=== PATIENT | male | born 1985 | race Caucasian/White ===

== ENCOUNTER → 2018-05-25 | Outpatient (CLI) | payer BC ==
[~2018-05-25] MED LIST: LORTAB 5/500 501 TAB PO; NO HOME MEDICATIONS
== END ==
LOC: COL.RAD 07:22
DX: R11.2 Nausea with vomiting, unspecified (principal); R19.00 Intra-abdominal and pelvic swelling, mass and lump, unspecified site; R12 Heartburn

== ENCOUNTER → 2018-06-07 | Outpatient (CLI) | payer BC ==
[~2018-06-07] VITALS: Ht 190.5 cm; Wt 116.4 kg
[2018-06-07] VITALS (15 sets, daily range): BP systolic 146–175; BP diastolic 89–113; PULSE 78–98
[~2018-06-07] MED LIST changes: +PRIL40 PO; +WELLBUTRIN XL300 M1 PO
[2018-06-07 12:38] LABS: INR 1.2 (0.8-3.0)
--- NOTE | 2018-06-07 12:50 | NUR ---
pt to ct for scan and prep for liver biopsy. Monitors applied.
--- NOTE | 2018-06-07 13:15 | NUR ---
Specimens obtained by Dr Wadsworth and placed in formalin. Specimen labeled.
== END ==
LOC: COL.RAD 12:02
PROVIDERS: Internal Medicine Gastroenterology
DX: F10.10 Alcohol abuse, uncomplicated (principal); R74.8 Abnormal levels of other serum enzymes
CPT/HCPCS: Q9967